=== PATIENT | male | born 1955 | race Caucasian/White ===

== ENCOUNTER 2018-07-17 10:38 | Emergency (ER) | payer OTHER ==
[~2018-07-17] VITALS: Ht 160 cm; Wt 51.7 kg
[~2018-07-17 10:38] MED LIST: Flomax0.4 MG PO; OXYACE5T PO
[2018-07-18] MEDS ORDERED: CEPH500 PO (13:09)
== END 2018-07-17 11:15 | disposition home or self-care (01) ==
LOC: ER 10:38
DX: Z46.6 Encounter for fitting and adjustment of urinary device (principal); N40.0 Benign prostatic hyperplasia without lower urinary tract symptoms; Z79.899 Other long term (current) drug therapy; F17.210 Nicotine dependence, cigarettes, uncomplicated
CPT/HCPCS: 99282

== ENCOUNTER 2018-07-18 10:04 | Emergency (ER) | payer OTHER ==
[~2018-07-18] VITALS: Ht 162.6 cm; Wt 51.7 kg
[2018-07-18 11:10] LABS: Calcium, Ionized (POC) 1.15 mmol/L (1.10-1.46); Chloride (POC) 102 mmol/L (98-108); Creatinine (POC) 0.9 mg/dL (0.8-1.3); Glucose (ISTAT POC) 98 mg/dL (70-99); Hemoglobin (POC) 16.7 g/dL (13.5-17.5); Potassium (POC) 3.7 mmol/L (3.5-5.5); Sodium (POC) 142 mmol/L (135-148); Total CO2 (POC) 27 mmol/L (21-32)
[2018-07-18 11:56] LABS: Source, Urine Catheter
[2018-07-18 12:30] LABS: Bilirubin, Urine Neg (Neg); Blood, Urine Neg (Neg); Glucose Qualitative, Urine Neg (Neg); Ketones, Urine Neg (Neg); Leukocyte Esterase, Urine 1+ (Neg); Nitrite, Urine Neg (Neg); Protein, Urine 1+ (Neg); Urobilinogen, Urine NORM (Normal)
[2018-07-18 12:56] LABS: Appearance, Urine Clear (Clear); Color, Urine Yellow (P-Yellow)
[2018-07-18 12:58] LABS: Mucus Light (0-Heavy)
[2018-07-18 13:00] LABS: Squamous Epithelial Cells Rare /hpf (Few)
[2018-07-18 13:01] LABS: Bacteria Few /hpf; Red Blood Cells, Urine Rare /hpf (0-2)
[2018-07-18] MEDS ORDERED: CEPH500 PO (13:09)
== END 2018-07-18 13:27 | disposition home or self-care (01) ==
LOC: ER 10:04
PROVIDERS: Emergency Medicine
DX: R33.9 Retention of urine, unspecified (principal); F17.210 Nicotine dependence, cigarettes, uncomplicated; Z79.899 Other long term (current) drug therapy
CPT/HCPCS: 36415; 51702; 51798; 80047; 81001; 85014; 87086; 99283

== ENCOUNTER 2021-12-22 19:09 | Emergency (ER) | payer MEDICARE, OTHER ==
[~2021-12-22] VITALS: Ht 165.1 cm; Wt 53.1 kg
[~2021-12-22 19:09] MED LIST changes: +CEPH500 PO
[2021-12-22 20:37] LABS: Source, Urine Straight Cath
[2021-12-22 20:39] LABS: Bilirubin, Urine Neg (Neg); Blood, Urine 5+ (Neg); Glucose Qualitative, Urine Neg (Neg); Ketones, Urine 2+ (Neg); Leukocyte Esterase, Urine 3+ (Neg); Nitrite, Urine Pos (Neg); Protein, Urine 2+ (Neg); Specific Gravity, Urine 1.025 (1.003-1.022); Urobilinogen, Urine 1+ (Normal)
[2021-12-22 20:40] LABS: Appearance, Urine Hazy (Clear); Color, Urine Brown (P-Yellow)
[2021-12-22 21:00] LABS: Squamous Epithelial Cells Not Seen /hpf (Few); White Blood Cells, Urine 50-100 /hpf (0-5)
[2021-12-22 21:01] LABS: Amorphous Light (0-Heavy); Bacteria Few /hpf; Mucus Light (0-Heavy)
[2021-12-22 22:26] LABS: BASOPHILS ABSOLUTE AUTO 0.09 K/mm3 (0.00-0.23); BASOPHILS PERCENT AUTO 1 % (0-2); EOSINOPHILS ABSOLUTE AUTO 0.29 K/mm3 (0.00-0.68); EOSINOPHILS PERCENT AUTO 2 % (0-6); Hematocrit 43.7 % (37.0-53.0); Hemoglobin 14.3 g/dL (13.5-17.5); IMMATURE GRAN ABSOLUTE AUTO 0.07 K/mm3 (0.00-0.10); IMMATURE GRAN PERCENT AUTO 1 % (0-1); LYMPHOCYTES ABSOLUTE AUTO 2.44 K/mm3 (0.84-5.20); LYMPHOCYTES PERCENT AUTO 20 % (21-46); MONOCYTES ABSOLUTE AUTO 1.12 K/mm3 (0.16-1.47); MONOCYTES PERCENT AUTO 9 % (4-13); Mean Corpuscular HGB 29.1 pg (26.0-34.0); Mean Corpuscular HGB Conc 32.7 g/dL (31.5-36.5); Mean Corpuscular Volume 89 fL (80-100); Mean Platelet Volume 10.2 fL (9.1-12.4); NEUTROPHILS PERCENT AUTO 68 % (41-73); Platelet Count 227 K/mm3 (150-400); RDW Coefficient Variation 15.6 % (11.7-14.2); RDW Standard Deviation 50.4 fL (35.1-46.3); Red Blood Cell Count 4.91 M/mm3 (4.30-5.90); White Blood Cell Count 12.41 K/mm3 (4.00-11.30)
[2021-12-22 22:42] LABS: Albumin, Blood 3.8 g/dL (3.4-5.0); Albumin/Globulin Ratio 1.1 (0.8-1.8); Bilirubin, Total 0.4 mg/dL (0.1-1.0); Bun/Creatinine Ratio 17.4 (12.0-20.0); Calcium, Blood 9.3 mg/dL (8.5-10.1); Creatinine, Blood 0.92 mg/dL (0.60-1.20); Globulin, Blood 3.5 g/dL (2.2-4.0); Potassium, Blood 3.3 mmol/L (3.5-5.5); Total Protein, Blood 7.3 g/dL (6.4-8.2)
[2021-12-22] MEDS ORDERED: CEPH500 PO (23:12)
[2021-12-24] MEDS ORDERED: Flomax0.4 MG PO (10:30)
[2021-12-24] MEDS ORDERED: CIPR500 PO (16:26)
== END 2021-12-23 00:26 | disposition home or self-care (01) ==
LOC: ER 19:09
PROVIDERS: Student in an Organized Health Care Education/Training Program
DX: N39.0 Urinary tract infection, site not specified (principal); N40.1 Benign prostatic hyperplasia with lower urinary tract symptoms; R33.8 Other retention of urine; F17.210 Nicotine dependence, cigarettes, uncomplicated; Z79.899 Other long term (current) drug therapy
CPT/HCPCS: 51702; 51798; 80053; 81001; 85025; 96372; 99283-25; A9270; J0696

== ENCOUNTER 2021-12-24 10:00 | Emergency (ER) | payer MEDICARE, OTHER ==
[~2021-12-24] VITALS: Ht 162.6 cm; Wt 53.1 kg
[2021-12-24] MEDS ORDERED: Flomax0.4 MG PO (10:30)
[2021-12-24] MEDS ORDERED: CIPR500 PO (16:26)
== END 2021-12-24 10:30 | disposition home or self-care (01) ==
LOC: ER 10:00
DX: Z46.6 Encounter for fitting and adjustment of urinary device (principal); Z72.0 Tobacco use; Z79.899 Other long term (current) drug therapy
CPT/HCPCS: 99282

== ENCOUNTER 2021-12-24 16:06 | Emergency (ER) | payer MEDICARE, OTHER ==
[~2021-12-24] VITALS: Ht 162.6 cm; Wt 53.1 kg
[2021-12-24] MEDS ORDERED: CIPR500 PO (16:26)
== END 2021-12-24 16:57 | disposition home or self-care (01) ==
LOC: ER 16:06
DX: R33.9 Retention of urine, unspecified (principal); Z79.899 Other long term (current) drug therapy
CPT/HCPCS: 51702

== ENCOUNTER 2023-02-06 10:42 | Day surgery (SDC) | payer MEDICARE, OTHER ==
[~2023-02-06] VITALS: Ht 162.6 cm; Wt 57.0 kg
[~2023-02-06 10:42] MED LIST changes: +CIPR500 PO; +Pentoxifylline400 MG PO; +TAMS.4ER PO
[2023-02-06 11:07] VITALS: BP 167/77
[2023-02-06] MEDS ORDERED: ATORVASTATIN CA10 MG PO (11:12)
[2023-02-06 15:56] VITALS: BP 85/65
[2023-02-06 16:00] VITALS: BP 91/63
[2023-02-06 16:15] VITALS: BP 115/89
--- NOTE | 2023-02-06 16:15 | NUR ---
9770 PATIENT RETURNED FROM THE CATHLAB. PATIENT HAD ADVERSE REACTION TO SEDATION AND FIVE PERSON ASSIST TO TRANSFER PATIENT OFF THE CATHLAB TABLE. PATIENT WAS RESISTFUL TO STAFF. PATIENT PLACED ON THE MONITOR. PATIENT TURNED SELF ONTO HIS RIGHT SIDE WITH A TR BAND IN PLACE TO THE LEFT RADIAL ANGIOSEAL TO THE LEFT GROIN AND EMANUEL/TEGADERM TO THE RIGHT PEDAL. ALL SITES ARE STABLE AT THE MOMENT. NO BLEEDING NOTED. NO HEMATOMA NOTED. VVS. NIBP IS TAKEN FROM THE LLE. SIDE RAILS UP X TWO. CALL LIGHT IN REACH. PATIENT IS SNORING WHEN LEFT ALONE.
--- NOTE | 2023-02-06 16:22 | NUR ---
1615 PATIENT WAKING, DEMANDING TO GET OOB TO THE RESTROOM EXPLAINED TO THE PATIENT THAT HE IS ON BEDREST. PATIENT SELF CATH AT HOME AND WE OFFERED TO [facility]UTZ CATH HIM FOR THE TIME OF BEDREST. PATIENT AGREED TO THIS AND ORDER OBTAIN FROM DR. DREW.
[2023-02-06 16:30] VITALS: BP 108/92
[2023-02-06 17:04] VITALS: BP 130/77
--- NOTE | 2023-02-06 17:25 | NUR ---
TR BAND AIR REMOVED AND NO BLEEDING NOTED. VVS. PATIENT LUTZ REMOVED AND ALLOWED UP TOT HE RESTROOM. OFF BEDREST.
--- NOTE | 2023-02-06 18:13 | NUR ---
1750 PATIENT PIV REMOVED, CATH TIP INTACT AND PRESSURE DRESSING APPLIED. PATIENT DISCHARGE INSTRUCTIONS REVIEWED AND SIGNATURES OBTAINED AND COPIES GIVEN TO THE PATIENT. THE OFFICE WILL CALL HIM WITH A FOLLOW PROCDURE TIME WITH ANESETHESIA SCHEDULED TO RETURN FOR SECOND PROCEDURE. RADIAL, PEDAL AND GROIN SITES ALL STABLE AND DRESSING INTACT. NO BLEEDING, NO HEMATOMA NOTED. ALL BELONGINGS GATHERED AND RIDE CALED FOR.
--- NOTE | 2023-02-06 18:16 | NUR ---
1805 PATIENT WHEELCHAIRED TO THE [place] ENTRANCE AND VAN RIDE WAITING TO TAKE ALAN HOME.
== END 2023-02-06 22:59 | disposition home or self-care (01) ==
LOC: MHTC 10:42
DX: I70.221 Atherosclerosis of native arteries of extremities with rest pain, right leg (principal); L97.511 Non-pressure chronic ulcer of other part of right foot limited to breakdown of skin; E78.5 Hyperlipidemia, unspecified; I10 Essential (primary) hypertension; Z87.891 Personal history of nicotine dependence
CPT/HCPCS: 37186; 37221; 37222; 37224; 75625; 75710; 75774; 76937; 99152; 99153; C1725; C1760; C1769; C1773; C1876; C1887; C1894; J2250; J3010; J7030; J7050; Q9967

== ENCOUNTER 2023-11-04 04:05 | Day surgery (SDC) | payer MEDICARE, OTHER ==
[~2023-11-04 04:05] MED LIST changes: +ASPI81CH PO; +ATOR80 PO; +CLOP75 PO
== END 2023-11-04 22:58 | disposition home or self-care (01) ==
LOC: WOUND 04:05
DX: L97.511 Non-pressure chronic ulcer of other part of right foot limited to breakdown of skin (principal); I73.9 Peripheral vascular disease, unspecified
CPT/HCPCS: G0463

== ENCOUNTER → 2024-03-13 | Outpatient (CLI) | payer MEDICARE, OTHER ==
[2024-03-13 14:03] LABS: PSA, %Free 33.8 %
== END | disposition home or self-care (01) ==
LOC: LAB 12:31 → LAB SHORT 12:31
PROVIDERS: Family Medicine
DX: R97.20 Elevated prostate specific antigen [PSA] (principal)
CPT/HCPCS: 84153; 84154

== ENCOUNTER 2024-09-06 19:37 | Inpatient (IN) | payer MEDICARE, OTHER ==
[~2024-09-06] VITALS: Ht 162.6 cm; Wt 55.3 kg
[2024-09-06] MEDS ORDERED: NS 1,000 ML IV SCH (20:30)
[2024-09-06 20:56] LABS: BASOPHILS ABSOLUTE AUTO 0.07 K/mm3 (0.00-0.23); BASOPHILS PERCENT AUTO 0 % (0-2); EOSINOPHILS PERCENT AUTO 0 % (0-6); Hemoglobin 6.8 g/dL (13.5-17.5); IMMATURE GRAN ABSOLUTE AUTO 0.19 K/mm3 (0.00-0.10); IMMATURE GRAN PERCENT AUTO 1 % (0-1); LYMPHOCYTES ABSOLUTE AUTO 0.87 K/mm3 (0.84-5.20); LYMPHOCYTES PERCENT AUTO 5 % (21-46); MONOCYTES PERCENT AUTO 10 % (4-13); Mean Corpuscular HGB 22.1 pg (26.0-34.0); Mean Corpuscular HGB Conc 29.6 g/dL (31.5-36.5); Mean Corpuscular Volume 75 fL (80-100); Mean Platelet Volume 10.2 fL (9.1-12.4); NEUTROPHILS ABSOLUTE AUTO 13.42 K/mm3 (1.96-9.15); NEUTROPHILS PERCENT AUTO 83 % (41-73); NRBC ABSOLUTE 0.28 K/mm3 (0.00-0.02); NRBC Auto 1.7 /100 WBC (0.0-0.2); Platelet Count 192 K/mm3 (150-400); RDW Coefficient Variation 19.3 % (11.7-14.2); RDW Standard Deviation 51.1 fL (35.1-46.3); Red Blood Cell Count 3.08 M/mm3 (4.30-5.90); White Blood Cell Count 16.15 K/mm3 (4.00-11.30)
[2024-09-06] MEDS ORDERED: Albuterol 2.5 MG/3 ML VIAL INH SCH (21:20)
[2024-09-06] MEDS ORDERED: Ipratropium/Albuterol SulF 2.5-0.5MG/3 ML Amp INH ONE (21:20)
[2024-09-06 21:22] LABS: Albumin, Blood 2.1 g/dL (3.4-5.0); Albumin/Globulin Ratio 0.8 (0.8-1.8); Bilirubin, Total 0.3 mg/dL (0.1-1.0); Bun/Creatinine Ratio 19.7 (12.0-20.0); Calcium, Blood 6.1 mg/dL (8.5-10.1); Creatinine, Blood 1.42 mg/dL (0.60-1.20); Globulin, Blood 2.7 g/dL (2.2-4.0); Magnesium, Blood 1.7 mg/dL (1.6-2.4); Potassium, Blood 3.1 mmol/L (3.5-5.5); Total Protein, Blood 4.8 g/dL (6.4-8.2)
[2024-09-06] MEDS ORDERED: Azithromycin 500 MG in NS 250 ML IV ONE (21:25)
[2024-09-06] MEDS ORDERED: CefTRIAXone Sodium 1,000 MG in NS 50 ML IV ONE (21:25)
[2024-09-06] MEDS ORDERED: Magnesium Sulf 2 GM/Water 50ML 50 ML IV ONE (21:35)
[2024-09-06] MEDS ORDERED: Potassium Chl 20MEQ/Water100ML 300 ML IV ONE (21:35)
[2024-09-06] MEDS ORDERED: MethylPREDNISolone Sod Succ 125 MG Vial IV ONE (21:35)
[2024-09-06] MEDS ORDERED: Aspirin 81 MG Chew PO ONE (21:40)
[2024-09-06 21:43] LABS: Bicarbonate Venous 16.7 mmol/L (24.0-30.0); PCO2 Venous 30.6 mmHg (38-42); pH Blood Venous 7.33 (7.34-7.37)
[2024-09-06] MEDS ORDERED: Acetaminophen 325 MG TABLET PO PRN (23:00)
[2024-09-06] MEDS ORDERED: Ipratropium/Albuterol SulF 2.5-0.5MG/3 ML Amp INH SCH (23:00)
[2024-09-06] MEDS ORDERED: dexmedeTOMIDine 100 ML IV SCH (23:15)
[2024-09-06 23:19] LABS: Percent Saturation 2.5 % (20.0-50.0)
[2024-09-06] MEDS ORDERED: Sod Ferric Gluc Complx/Sucrose 125 MG in NS 100 ML IV SCH (23:34)
[2024-09-07] VITALS (57 sets, daily range): BP systolic 74–132; BP diastolic 55–120
[2024-09-07] MEDS ORDERED: CIPR250 PO (00:46)
[2024-09-07] MEDS ORDERED: LOSA50 PO (00:47)
[2024-09-07] MEDS ORDERED: EZET10 PO (00:47)
[2024-09-07] MEDS ORDERED: NS 500 ML IV SCH (00:50)
[2024-09-07] MEDS ORDERED: Heparin Sodium,Porcine/0.5 NS 500 ML IV SCH (04:45)
[2024-09-07 05:17] LABS: BASOPHILS ABSOLUTE AUTO 0.08 K/mm3 (0.00-0.23); BASOPHILS PERCENT AUTO 0 % (0-2); EOSINOPHILS ABSOLUTE AUTO 0.01 K/mm3 (0.00-0.68); EOSINOPHILS PERCENT AUTO 0 % (0-6); Hematocrit 33.5 % (37.0-53.0); Hemoglobin 10.1 g/dL (13.5-17.5); IMMATURE GRAN ABSOLUTE AUTO 0.24 K/mm3 (0.00-0.10); IMMATURE GRAN PERCENT AUTO 1 % (0-1); LYMPHOCYTES ABSOLUTE AUTO 0.83 K/mm3 (0.84-5.20); LYMPHOCYTES PERCENT AUTO 4 % (21-46); MONOCYTES ABSOLUTE AUTO 0.87 K/mm3 (0.16-1.47); MONOCYTES PERCENT AUTO 4 % (4-13); Mean Corpuscular HGB 22.6 pg (26.0-34.0); Mean Corpuscular HGB Conc 30.1 g/dL (31.5-36.5); Mean Corpuscular Volume 75 fL (80-100); Mean Platelet Volume 10.3 fL (9.1-12.4); NEUTROPHILS ABSOLUTE AUTO 17.98 K/mm3 (1.96-9.15); NEUTROPHILS PERCENT AUTO 90 % (41-73); NRBC ABSOLUTE 0.64 K/mm3 (0.00-0.02); NRBC Auto 3.2 /100 WBC (0.0-0.2); Platelet Count 208 K/mm3 (150-400); RDW Coefficient Variation 21.3 % (11.7-14.2); RDW Standard Deviation 55.5 fL (35.1-46.3); Red Blood Cell Count 4.46 M/mm3 (4.30-5.90); White Blood Cell Count 20.01 K/mm3 (4.00-11.30)
[2024-09-07 05:29] LABS: Anti-Xa UFH, PHA Monitoring <0.10 IU/mL; International Normalized Ratio 1.01; Prothrombin Time Results 10.8 Sec (9.7-11.5)
[2024-09-07 05:41] LABS: Magnesium, Blood 3.2 mg/dL (1.6-2.4)
[2024-09-07 05:49] LABS: Alanine Aminotransfer (ALT/SGP 55 U/L (12-78); Albumin, Blood 2.9 g/dL (3.4-5.0); Albumin/Globulin Ratio 0.8 (0.8-1.8); Alk Phos 56 U/L (50-136); Anion Gap 16 mmol/L (3-11); Aspartate Aminotrans (AST/SGOT 175 U/L (12-37); Bilirubin, Total 0.5 mg/dL (0.1-1.0); Blood Urea Nitrogen 38 mg/dL (8-24); Bun/Creatinine Ratio 20.1 (12.0-20.0); CHOL/HDL RATIO 2.8; CO2, Blood 18 mmol/L (21-32); Chloride, Blood 107 mmol/L (98-108); Cholesterol 125 mg/dL (50-200); Creatinine, Blood 1.89 mg/dL (0.60-1.20); Globulin, Blood 3.8 g/dL (2.2-4.0); Glomerular Filtration Rate 38 (60-); Glucose, Blood 144 mg/dL (70-99); HDL Cholesterol 45 mg/dL (>39); LDL/HDL RATIO 1.3; Low Density Lipoprotein Chol 58 mg/dL (0-110); Potassium, Blood 4.5 mmol/L (3.5-5.5); Sodium, Blood 136 mmol/L (136-145); Thyroid Stimulating Hormone 0.892 uIU/mL (0.360-4.800); Total Protein, Blood 6.7 g/dL (6.4-8.2); Triglycerides 111 mg/dL (30-160); Very Low Density Lipoprot Chol 22 mg/dL (6-32)
[2024-09-07 06:02] LABS: Calcium, Blood 8.5 mg/dL (8.5-10.1)
--- NOTE | 2024-09-07 06:31 | NUR ---
SHIFT SUMMARY: THIS PT CAME TO ICU FROM ED AT AROUND 0030 ON BIPAP. I WAS TOLD BY ED RN THAT THE PT WAS NOT TOLERATING BIPAP WELL AND SO PRECEDEX WAS ORDERED. UPON ARRIVAL TO ICU, PT WAS CALM AND TOLERATING BIPAP, SO PRECEDEX WAS NOT STARTED. HEART RATE HAS BEEN IN LOW 100s SINUS TACHYCARDIA. BLOOD PRESSURES HAVE BEEN IN NARROW RANGE SINCE ARRIVAL BUT MAP HAS REMAINED ABOVE 65. HE IS TOLERATING BIPAP AND 02 SAT HAS BEEN 92% AND ABOVE. HE HAS SLEPT MOST OF THE NIGHT.
[2024-09-07] MEDS ORDERED: GuaiFENesin 600 MG TabCR PO SCH (09:00)
[2024-09-07] MEDS ORDERED: MethylPREDNISolone Sod Succ 125 MG Vial IV SCH (09:00)
[2024-09-07] MEDS ORDERED: Tamsulosin HCl 0.4 MG Cap PO SCH (09:00)
[2024-09-07] MEDS ORDERED: Atorvastatin 40 MG Tab PO SCH (09:00)
[2024-09-07] MEDS ORDERED: Aspirin 81 MG Chew PO SCH (09:00)
[2024-09-07] MEDS ORDERED: Azithromycin 500 MG in NS 250 ML IV SCH (09:00)
[2024-09-07] MEDS ORDERED: Lactobacil 2-S.Thermo-Bifido 1 1 Cap PO SCH (09:00)
[2024-09-07 12:42] LABS: Influenza A, PCR NEGATIVE (NEGATIVE); Influenza B, PCR NEGATIVE (NEGATIVE); Resp Syncytial Virus, PCR NEGATIVE (NEGATIVE); SARS-Cov-2 (COVID-19) PCR, MMC NEGATIVE (NEGATIVE)
--- NOTE | 2024-09-07 13:05 | NUR ---
MID-SHIFT UPDATE PATIENT A/O X3, REQUIRES REORIENTATION TO DATE/TIME. PT RESPONDS AND INTERACTS APPROPRIATELY BUT SPEECH IS DIFFICULT TO UNDERSTAND AT TIMES. AFEBRILE. TOLERATING BIPAP WELL, DOES FAIRLY WELL WITH SHORT BREAKS TO 4LNC, BUT WOB AND HR BEGIN INCREASING. MULTIPLE EPISODES OF URINARY INCONTINENCE. CHG BATH, KATT CARE, AND LINEN CHANGE PERFORMED. PT PROVIDED EDUCATION AND IN AGREEMENT TO PLACEMENT OF MALE PUREWICK. CARDIOLOGY, DR. RAWLS, ROUNDED FOR BEDSIDE EVALUATION. HEPARIN DISCONTINUED UNTIL SOURCE OF ANEMIA/BLOOD LOSS CAN BE IDENTIFIED. NO PLANS FOR CARDIAC INTERVENTION AT THIS TIME. MINCED/MOIST DIET INITIATED FOR LUNCH. SPOKE WITH DR. POON THIS MORNING - HE INSTRUCTED NOT TO INFUSING SECOND UNIT OF PRBCS. PROVIDER TO ORDER FOLLOW UP AFTERNOON LABS. BEDSIDE ECHO AND RENAL US COMPLETED. RESPIRATOR PCR NEGATIVE. INTITIATED.
[2024-09-07] MEDS ORDERED: Metoprolol Tartrate 5 ML IV ONE (15:49)
[2024-09-07] MEDS ORDERED: Albuterol 2.5 MG/3 ML VIAL ONE (15:53)
[2024-09-07] MEDS ORDERED: Albuterol 2.5 MG/3 ML VIAL INH PRN (15:55)
[2024-09-07] MEDS ORDERED: BusPIRone HCl 5 MG Tab PO SCH (16:00)
[2024-09-07] MEDS ORDERED: Metoprolol Tartrate 1 MG/ML 5 ML VIAL IV PRN (16:05)
[2024-09-07] MEDS ORDERED: Furosemide 10 MG / ML 2ML Vial IV ONE (16:05)
[2024-09-07 17:07] LABS: Hematocrit 30.3 % (37.0-53.0); Hemoglobin 9.7 g/dL (13.5-17.5); Mean Corpuscular HGB 23.1 pg (26.0-34.0); Mean Corpuscular Volume 72 fL (80-100); NRBC ABSOLUTE 1.16 K/mm3 (0.00-0.02); NRBC Auto 4.1 /100 WBC (0.0-0.2); Platelet Count 225 K/mm3 (150-400); RDW Coefficient Variation 20.5 % (11.7-14.2); RDW Standard Deviation 50.9 fL (35.1-46.3); White Blood Cell Count 28.63 K/mm3 (4.00-11.30)
--- NOTE | 2024-09-07 17:18 | NUR ---
END SHIFT SUMMARY AROUND 1545 HR ELEVATED TO 140S-150S, PT BECAME ANXIOUS, NOT TOLERATING BIPAP. REMOVED MASK, PLACED ON OXYMIZER MASK. RT AND DR. POON NOTIFIED. WHEEZING AND TIGHTNESS AUSCULTATED BILATERALLY. BREATHING TREATMENT ADMINISTERED. 2.5MG LOPRESSOR ADMINISTERED. LABS DRAWN. HR DECREASED TO 110S, PT REPORTS RELIEF. O2 SAT 98% AFTER INTERVENTIONS.
[2024-09-07] MEDS ORDERED: Furosemide 10 MG / ML 2ML Vial IV SCH (18:00)
[2024-09-07] MEDS ORDERED: CefTRIAXone Sodium 1,000 MG in NS 100 ML IV SCH (21:00)
[2024-09-07] MEDS ORDERED: Furosemide 10 MG/ML 4ML Vial IV ONE (22:25)
[2024-09-08] VITALS (55 sets, daily range): BP systolic 62–121; BP diastolic 34–102
[2024-09-08] MEDS ORDERED: LORazepam 2 MG/ML 1ML Injection IV ONE (02:45)
[2024-09-08 03:40] LABS: Base Excess Venous -7.2 mmol/L; Bicarbonate Venous 18.8 mmol/L (24.0-30.0); PCO2 Venous 29.5 mmHg (38-42); pH Blood Venous 7.39 (7.34-7.37)
[2024-09-08 03:44] LABS: Hematocrit 30.9 % (37.0-53.0); Hemoglobin 9.5 g/dL (13.5-17.5); Mean Corpuscular HGB 22.4 pg (26.0-34.0); Mean Corpuscular HGB Conc 30.7 g/dL (31.5-36.5); Mean Corpuscular Volume 73 fL (80-100); Mean Platelet Volume 10.7 fL (9.1-12.4); NRBC ABSOLUTE 1.14 K/mm3 (0.00-0.02); NRBC Auto 3.6 /100 WBC (0.0-0.2); Platelet Count 259 K/mm3 (150-400); RDW Coefficient Variation 20.2 % (11.7-14.2); RDW Standard Deviation 50.4 fL (35.1-46.3); Red Blood Cell Count 4.24 M/mm3 (4.30-5.90); White Blood Cell Count 32.03 K/mm3 (4.00-11.30)
[2024-09-08 04:19] LABS: Albumin, Blood 2.7 g/dL (3.4-5.0); Anion Gap 15 mmol/L (3-11); Blood Urea Nitrogen 59 mg/dL (8-24); Bun/Creatinine Ratio 29.2 (12.0-20.0); CO2, Blood 17 mmol/L (21-32); Calcium, Blood 8.5 mg/dL (8.5-10.1); Chloride, Blood 107 mmol/L (98-108); Creatinine, Blood 2.02 mg/dL (0.60-1.20); Glomerular Filtration Rate 35 (60-); Glucose, Blood 128 mg/dL (70-99); Phosphorus, Blood 5.5 mg/dL (2.5-4.9); Potassium, Blood 4.1 mmol/L (3.5-5.5); Sodium, Blood 135 mmol/L (136-145)
[2024-09-08] MEDS ORDERED: Furosemide 10 MG/ML 4ML Vial IV SCH (04:45)
[2024-09-08] MEDS ORDERED: NS 250 ML IV PRN (04:45)
[2024-09-08] MEDS ORDERED: NS 250 ML IV ONE (06:35)
[2024-09-08] MEDS ORDERED: Vasopressin 20 UNITS in NS 100 ML IV SCH (06:35)
--- NOTE | 2024-09-08 06:53 | NUR ---
SHIFT SUMMARY PT REMAINS A&OX3, NEEDS RE-ORIENTING TO TIME. AT TIMES PT BECAME CONFUSED AND ATTEMPTED TO GET OUT OF BED, THIS SHIFT, EASILY RE-DIRECTED. FOLLOWS VERBAL COMMANDS AND HOLDS APPROPRIATE CONVERSATION. PT REMAINED AFEBRILE THIS SHIFT. PT HR TACHYCARDIC MOST OF SHIFT 80S-130S. SBP SOFT 70S-90S. PT HAD A HARD TIME TOLERATING BIPAP THIS SHIFT, REQUESTING FREQUENT BREAKS. PT UNABLE TO MAINTAIN SATS ABOVE 90% WHEN NOT ON BIPAP. PT SATS 88% ON 15L HIGH FLOW MASK. PT URGED TO STAY ON BIPAP. PT RECEIVED ONE DOSE OF ATIVAN, SEE EMAR. AFTER THIS DOSE PT ATTEMPTED TO PULL LINES AND GET OUT OF BED. PROVIDER NOTIFIED. PROVIDER SPOKE W/PT ON GOALS OF CARE. CENTRAL LINE WAS PLACED IN RIJ, IN ORDER TO START LEVOPHED AND PRECEDEX. PT TOLERATED WELL . PT NOW REMAINS ON BIPAP 10/6/FIO2 AT 40%. LEVOPHED AND PRECEDEX INFUSING, W/CONTINOUS TITRATION TO MAINTAIN MAP>65. PT ABD REMAINS SOFT TO PALPATION, NO N/V REPORTED. BT HYPOACTIVE T/O. MALE PUREWICK IN PLACE, ANDRES URINE DRAINING INTO SUCTION CANISTER. THIS RN TO REPORT TO ONCOMING RN.
[2024-09-08] MEDS ORDERED: MethylPREDNISolone Sod Succ 125 MG Vial IV SCH (09:00)
[2024-09-08] MEDS ORDERED: Pantoprazole Sodium 40 MG Injection IV SCH (11:05)
[2024-09-08] MEDS ORDERED: Sod Ferric Gluc Complx/Sucrose 125 MG in NS 100 ML IV SCH (13:35)
[2024-09-08 14:13] LABS: Base Excess Venous -9.1 mmol/L; Bicarbonate Venous 17.3 mmol/L (24.0-30.0); PCO2 Venous 35.6 mmHg (38-42)
[2024-09-08 15:09] LABS: Stool Occult Blood Guaiac 1 Neg (Neg)
[2024-09-08] MEDS ORDERED: LORazepam 2 MG/ML 1ML Injection IV PRN (15:25)
[2024-09-08] MEDS ORDERED: LORazepam 1 MG Tab PO PRN (15:25)
[2024-09-08] MEDS ORDERED: Scopolamine Hydrobromide Patch TOP PRN (15:25)
[2024-09-08] MEDS ORDERED: Atropine Sulfate 1% Opth Soln 2ML BTL SL PRN (15:25)
[2024-09-08] MEDS ORDERED: Morphine Sulfate 10 MG/ML 1MLSYR IV PRN (15:25)
[2024-09-08] MEDS ORDERED: Morphine Sulfate 20 MG/1ML 1 ML Oral Syringe SL PRN (15:25)
--- NOTE | 2024-09-08 15:28 | NUR ---
"Spiritual Care | Comfort Care Pt. is on a bipap, when comfort care orders are decided by the Pts. medical decision maker. Supportive life review takes place. Pt. isn't responsive during this meeting. Will remain available when comfort care begins."
--- NOTE | 2024-09-08 15:42 | NUR ---
UPDATE PT A&OX4, QUITE ANXIOUS & TACHYPNEIC WITH OR WITHOUT BIPAP. GIVING FREQUENT BREAKS WITH 10-15L VIA HIFLOW NC BUT PT STILL DESATS TO THE 80'S AND RR TO THE 40'S. TRIALED PRECEDEX OFF FOR THIS AM AND BACK ON THIS AFTERNOON BUT PT MORE RESTLESS WITH PRECEDEX ON. PRECEDEX OFF FOR OVER AN HOUR, PT CLEAR, SPEAKING WITH FAMILY AT BEDSIDE. LONG DISCUSSION HELD WITH FAMILY, DR. HOLLIS, PALLIATIVE AND THIS RN. PT AND FAMILY DECIDING TO TRANSITION TO COMFORT CARE. LEVOPHED ON AT THIS TIME WELL BIPAP, PT SPENDING TIME WITH FAMILY.
--- NOTE | 2024-09-08 15:46 | NUR ---
Pt has been seen by cardiology today, there are "no further interventions available according to Dr. Villanueva. The pt's friend " returned to the room and we had a discussion regarding this. The patient stated he doesn't want to stay on a bi-pap, understands there aren't treatments options available. Plan is to go on comfort care. Orders placed. Pt requests a cup of coffee. Placed at bedside for when bipap removed.
[2024-09-08] MEDS ORDERED: Ondansetron HCl 2 MG / ML 2ML Vial IV PRN (16:15)
[2024-09-08] MEDS ORDERED: Ondansetron HCl 2 MG / ML 2ML Vial ONE (16:16)
--- NOTE | 2024-09-08 16:37 | NUR ---
"Spiritual Care | Comfort Care and EOL Education Pt. is awake and pleasant and welcomes my visit. Comfort care meds are being administered and the Pt. is drinking coffee when he welcomes prayer. Prayed with the Pt. Pt. verbalized gratitude for the prayer. (EOL Education) Pts. friend and career developer made the choice of [facility] as the home of choice when the Pt. passes."
--- NOTE | 2024-09-09 05:26 | NUR ---
SHIFT SUMMARY PT A/OX4, ON BIPAP FOR COMFORT PER REQUEST. PT DENIES ANY PAIN OR DISCOMFORT T/O SHIFT, NO MEDS GIVEN. NO FAMILY AT BEDSIDE.
[2024-09-09 08:26] VITALS: BP 96/60
--- NOTE | 2024-09-09 12:15 | NUR ---
PT TRANSFERRED TO MED-SURGE ROOM 325. PT ON COMFORT CARE, TREATED FOR AIR HUNGER THIS MORNING WHILE ON NC AND IN ANTICIPATION OF LAYING FLAT FOR REMOVAL OF CVC ON RIJ. PT EXPRESSED THAT HE FEELS LIKE HE CANNOT GO HOME FOR HOSPICE. HIS ROOMATE DANCER CAME TO VISIT AND EXPRESSED THAT SHE IS UNABLE TO CARE FOR HIM IN THE HOME AT THIS TIME. SHE STATED THAT HIS ROOM IS VERY CROWDED WITH THING AND UNABLE TO FIT A HOSPITAL BED AT THIS TIME AND THAT SHE IS CARING FOR HER AT THIS TIME WELL AND IT WOULD BE TOO MUCH. CASE MANAGEMENT AND CARE TEAM AWARE.
--- NOTE | 2024-09-09 15:54 | NUR ---
"Spiritual Care | Comfort Care Pt. is now resting and mostly not responsive. Pt. does NOT respond to this physician office specialist calling his name though gives evidence that he is hearing something as he gently moves when spoken to. Prayer was made for the Pt. home is already determined in a previous 09/08 chart."
--- NOTE | 2024-09-09 19:57 | NUR ---
SUMMARY PATIENT TRANSFERRED FROM ICU 14 AROUND NOON. PATIENT HAD VERY LABORED, TACHYPNIC BREATHING. RT CAME TO PLACE PATIENT ON BIPAP PATIENT WAS NOT TOLERATING HIGH FLOW NC, UNABLE TO GET AIR IN. BIPAP PLACED. MEDICATED WITH ROXANOL 15 MG AND 1 MG ATIVAN. DID NOT HELP MUCH. MEDICATED WITH 5 MG IV MORPHINE ABOUT 15 MINUTES AFTER AND THIS CALMED PATIENT'S BREATHING. PATIENT WAS ALRT WITH VERY GARBLED SPEECH. ONCE PATIENT WAS MORE COMFORTABLE BIPAP REMOVED AND PLACD ON 10 L HIGH LOW NC. RT CAME TO COLLECT BIPAP AND PATIENT WILL BE MANAGED WITH COMFORT CARE MEDS. PATIENT MEDICATED WTIH FULL 20 MG OF ROCANOL ABOUT AN HOUR AND HALF AFTER PREVIOUS ADMINSTRATION. PLACED SCOPOLAMINE PATCH AND STARTED ATROPINE DROPS. PATIENT THEN MEDICATED WITH 10 MG RAXANOL AT 1700 FOR AIR HUNGER WORSENING. THEN ABOUT 30 MINUTES LATER MEDICATED WITH 5 MG IV MORPHINE AND 1 MG IV ATIVAN WITH VISUALIZED RELIEF. PATIENT VERY COURSE/CRACKLY TO UPPER CHEST. WEAK COUGH. PUREWICK IN PLACE. PATIENT HAD ATTEMTPED TO GET OOB ONCE UPON TRANSFER AND SINCE BEING MEDICATED HAS NOT ATTEMPTED AGAIN. INCONTINENT. PATIENT TOO DROWSY TO EAT FOR LUNCH OR DINNER. ATTEMPTED TO GIVE SIP OF WATER IN THE AFTERNOON WHEN HE WAS ROUSABLE AND IMMEDIATELY STARTED COUGHING. BED ALARM ON.
--- NOTE | 2024-09-10 05:15 | NUR ---
SHIFT SUMMARY ALVIN WAS SLEEPING BUT ROUSABLE ON ASSESSMENT. NOT COMMUNICATING EFFECTIVELY AT THIS TIME. PT SCORING VERY LOW ON FLACC SCALE. MEDICATING PRN. PT TURNED Q2. HAS RATTLING BREATHING. MONITORING FOR S/S PAIN/ AIR HUNGER. NO ACUTE EVENTS TONIGHT.
--- NOTE | 2024-09-10 11:17 | NUR ---
Spiritual Care visit. COmfort Care. Pt. is alone and not repsonsive. Prayers of comfort are made on his behalf. Will remain available.
--- NOTE | 2024-09-10 16:03 | NUR ---
SHIFT SUMMARY PT REMAINS ON COMFORT CARE. MEDICATED PER EMAR FOR PAIN, RESTLESSNESS, AIR HUNGER, AND SECRETION BUILD UP. ORAL CARE COMPLETED Q4H. REPOSITIONE Q2H. PT PRIMARILY ONLY WAKING WITH REPOSITION AND/OR PAINFUL STIMULI. WHEN AWAKE PT ATTEMPTS TO COMMUNICATE BUT SPEECH IS VERY GARBELED. PT ABLE TO FOLLOW DIRECTION WHEN AWAKE TO OPEN MOUTH FOR ORAL CARE. NO ORAL INTAKE - PT COUGHING ON OWN SPUTUM AND HAVING DIFFICULTY SWALLOWING. MALE PUREWICK IN PLACE AND DUE TO BE CHANGED ON NOC SHIFT. PT CURRENTLY RESTING PEACEFULLY WITH BED IN LOWEST POSITION, CALL LIGHT WITHIN REACH, BED ALARM ON. FAMILY FRIEND, DANCER, AT BEDSIDE.
--- NOTE | 2024-09-11 04:25 | NUR ---
SHIFT SUMMARY ADMITTED FOR ACUTE RESPIRATORY FAILURE, DNR CODE. PT IS ON COMFORT CARE APPEARS TO BE RESTING. PT HAS BEEN GETTING JERSON AND ATIVAN TO BE MADE COMFORTABLE. PT IS BEDREST. PT IS ON 5L O2 NASAL CANNULA. PT HAS LEFT WRIST IV AND PUREWICK IN PLACE. BED IS IN LOW POSITION, CALL LIGHT WITHIN REACH, AND RAILS ARE TIMES 2.
--- NOTE | 2024-09-11 11:34 | NUR ---
"Spiritual Care | Comfort Care Pt. is on comfort care and is mostly not responsive. Pts. friend, and primary caregiver is at bedside. Much time was spent considered the work she has done careing for the pt. as well as her spouse. Prayed with and then went and prayed a palliative [place] spirit blessing over the the Pt. displayed evidence of tears, and verbalized gratitude for the spiritual care visit."
--- NOTE | 2024-09-11 17:50 | NUR ---
PT HAS BEEN AOX0 AND SOMULENT. PT HAS BEEN KEPT COMFORTABLE PER EMAR. PT TURNED Q2 HRS AND REPOSITIONED WITH ORAL CARE COMPLETED WELL. WILL CONTINUE TO MONITOR.
--- NOTE | 2024-09-11 21:37 | NUR ---
NURSE CALLED TO PT ROOM AT 1939. ASSESSED PT FOR ANY VITAL SIGNS. PT WAS STILL WARM BUT THERE WERE NO VITAL SIGNS PRESENT AND PUPILS NON REACTIVE TO LIGHT STIMULI. SECOND NURSE PRESENT WITH SAME FINDINGS. REPORTED TO CONTINUOUS PROCESS [employer] DRUM TIME OF 1942. NEXT OF KIN NOTIFIED VIA PHONE AND WISHES WERE CONVEYED THAT THEY HAD SPOKEN TO [facility] AT THIS [facility] AND INFORMATION GIVEN TO HOW THEY WANTED TO PROCEED WITH TRANSPORTING PT TO MORTUARY. NURSE ALSO ADVISED THAT PERSON SPEAKING WOULD COME BY TO COLLECT BELONGINGS.
== END 2024-09-11 19:43 | DRG 871 ==
LOC: ER 19:37 → ERHOLD 22:55 → ICUE 22:55 → MEDS 09-09 11:43
PROVIDERS: Internal Medicine; Internal Medicine Critical Care Medicine; Student in an Organized Health Care Education/Training Program; ADMIT Student in an Organized Health Care Education/Training Program
PROC: 3E03329 Introduction of Other Anti-infective into Peripheral Vein, Percutaneous Approach (ICD-10-PCS; principal; 2024-09-06)
PROC: 30233N1 Transfusion of Nonautologous Red Blood Cells into Peripheral Vein, Percutaneous Approach (ICD-10-PCS; 2024-09-06)
PROC: 5A09357 Assistance with Respiratory Ventilation, Less than 24 Consecutive Hours, Continuous Positive Airway Pressure (ICD-10-PCS; 2024-09-06)
PROC: 02HV33Z Insertion of Infusion Device into Superior Vena Cava, Percutaneous Approach (ICD-10-PCS; 2024-09-08)
PROC: 3E043XZ Introduction of Vasopressor into Central Vein, Percutaneous Approach (ICD-10-PCS; 2024-09-08)
DX: A41.9 Sepsis, unspecified organism (principal); I21.4 Non-ST elevation (NSTEMI) myocardial infarction; J18.9 Pneumonia, unspecified organism; R65.21 Severe sepsis with septic shock; J80 Acute respiratory distress syndrome; Z51.5 Encounter for palliative care; Z66 Do not resuscitate; I21.A1 Myocardial infarction type 2; I50.21 Acute systolic (congestive) heart failure; I42.0 Dilated cardiomyopathy; N17.9 Acute kidney failure, unspecified; J44.1 Chronic obstructive pulmonary disease with (acute) exacerbation; J44.0 Chronic obstructive pulmonary disease with (acute) lower respiratory infection; E87.20 Acidosis, unspecified; E87.1 Hypo-osmolality and hyponatremia; R57.0 Cardiogenic shock; I35.0 Nonrheumatic aortic (valve) stenosis; R57.1 Hypovolemic shock; D50.9 Iron deficiency anemia, unspecified; I25.10 Atherosclerotic heart disease of native coronary artery without angina pectoris; E87.6 Hypokalemia; I73.9 Peripheral vascular disease, unspecified; I27.20 Pulmonary hypertension, unspecified; N40.0 Benign prostatic hyperplasia without lower urinary tract symptoms; E78.5 Hyperlipidemia, unspecified; E83.42 Hypomagnesemia; J43.9 Emphysema, unspecified; I11.0 Hypertensive heart disease with heart failure; F17.200 Nicotine dependence, unspecified, uncomplicated; E87.8 Other disorders of electrolyte and fluid balance, not elsewhere classified; Z79.82 Long term (current) use of aspirin; Z79.02 Long term (current) use of antithrombotics/antiplatelets; R41.0 Disorientation, unspecified
CPT/HCPCS: 0241U; 36415; 36430; 36556; 71045; 71260; 76770; 80053; 80061; 80069; 82270; 82728; 82803; 83036; 83540; 83550; 83605; 83735; 83880; 84145; 84443; 84484; 85025; 85027; 85520; 85610; 85730; 86850; 86900; 86901; 86920; 87040; 93005; 93010; 93306; 94640; 94644; 94645; 94660; 94664; 94762; 96365-59; 96368; 96375; 99285-25; A9270; C1751; J0456; J0696; J1644; J1940; J2060; J2270; J2405; J2470; J2916; J2919; J3475; J3480; J7030; J7050; J7060; P9016; Q9967